=== PATIENT | male | born 2005 | race Caucasian/White ===

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

== ENCOUNTER → 2024-09-18 | Outpatient (CLI) | payer OTHER | LOC: M WUC 14:23 | PROVIDERS: ATTEND Physician Assistant | DX: S83.422A Sprain of lateral collateral ligament of left knee, initial encounter (principal); M89.8X8 Other specified disorders of bone, other site; W01.10XA Fall on same level from slipping, tripping and stumbling with subsequent striking against unspecified object, initial encounter; Y93.9 Activity, unspecified; Y92.9 Unspecified place or not applicable ==

== ENCOUNTER 2024-11-21 18:49 | Emergency (ER) | payer OTHER ==
[~2024-11-21] VITALS: Ht 175.3 cm; Wt 118.8 kg
[2024-11-21 18:52] VITALS: BP 136/80; TEMP 97.2; O2SAT 99
[2024-11-21] MEDS: ACETAMINOPHEN 500 MG TAB PO ONE (20:03)
[2024-11-21] MEDS: ONDANSETRON 4MG ORAL DISINTEGRATING TAB PO ONE (20:03)
== END 2024-11-21 20:09 | disposition home or self-care (01) ==
LOC: M ED 18:49
DX: S09.90XA Unspecified injury of head, initial encounter (principal); Y92.830 Public park as the place of occurrence of the external cause; Y93.67 Activity, basketball; Y99.9 Unspecified external cause status; Z88.1 Allergy status to other antibiotic agents

== ENCOUNTER → 2025-08-06 | Outpatient (CLI) | payer OTHER | LOC: M WUC 15:02 | DX: M79.642 Pain in left hand (principal) ==